=== PATIENT | female | born 1990 | race Caucasian/White ===

== ENCOUNTER 2018-01-21 04:18 | Emergency (ER) | payer OTHER ==
[~2018-01-21] VITALS: Ht 149.9 cm; Wt 72.7 kg
[~2018-01-21 04:18] MED LIST: ALBUTEROL SULF8.5 GM IH; AUGMENTIN875 MG PO; CIPRO500 MG PO; FLONASE16 G1 BOTH NARES; METHADONE HCL40 MG PO; MOTRIN600 MG PO; NOHOMEMEDS; PREDNISONE10 MG PO; PROVENTIL HFA6.7 GM IH; PROVENTIL,2.5 MG/3 M IH; TAMIFLU75 MG PO; TESSALON200 MG PO; VENTOLIN HFA18 GM IH; ZYRTEC10 M3 PO
[2018-01-21] MEDS ORDERED: BACTRIM,SEPT1 TABLET PO (05:06)
[2018-01-21 05:24] VITALS: BP 137/90
== END 2018-01-21 05:25 | disposition home or self-care (01) ==
LOC: EME 04:18
DX: L03.116 Cellulitis of left lower limb (principal); L03.114 Cellulitis of left upper limb; Z86.14 Personal history of Methicillin resistant Staphylococcus aureus infection; J45.909 Unspecified asthma, uncomplicated; F17.200 Nicotine dependence, unspecified, uncomplicated
CPT/HCPCS: 99281; 99284

== ENCOUNTER 2018-02-12 11:42 | Emergency (ER) | payer OTHER ==
[~2018-02-12] VITALS: Ht 149.9 cm; Wt 73.2 kg
[~2018-02-12 11:42] MED LIST changes: +BACTRIM,SEPT1 TABLET PO
[2018-02-12 11:49] VITALS: BP 151/101
[2018-02-12 14:15] LABS: HEMATOCRIT 42.3 % (36.0-46.0); MCH 30.1 PG (29.0-34.0); MCHC 33.1 G/DL (30.0-36.0); PLATELET COUNT 445 K/uL (156-360); RBC DIS.WIDTH-CV 14.7 % (11.8-14.6); RBC DIS.WIDTH-SD 48.6 % (39-53); RED BLOOD COUNT 4.65 M/uL (3.80-5.20); WHITE BLOOD COUNT 10.7 K/uL (4.1-10.2)
[2018-02-12 14:28] LABS: ALBUMIN 4.2 g/dL (3.2-4.8); CHLORIDE 106 mEq/L (99-109); POTASSIUM 3.6 mEq/L (3.7-5.4); SODIUM 143 mEq/L (136-147)
[2018-02-12 14:30] LABS: GLUCOSE 106 mg/dL (70-99); TOTAL PROTEIN 6.8 g/dL (6.4-8.3)
[2018-02-12 14:32] LABS: TOTAL BILIRUBIN 0.3 mg/dL (0.0-1.0)
[2018-02-12 14:34] LABS: ALKALINE PHOSPHATASE 70 IU/L (3-129); CREATININE 0.7 mg/dL (0.6-1.3); GFR ESTIMATE (CALCULATED) > 59 mL/min/
[2018-02-12 14:35] LABS: UREA NITROGEN (BUN) 9 mg/dL (9-23)
[2018-02-12 14:36] LABS: AST (GOT) 10 IU/L (2-34)
[2018-02-12 14:37] LABS: ALT (GPT) 8 IU/L (3-49)
[2018-02-12 14:44] LABS: QUANTITATIVE HCG < 4.0 MIU/ML
== END 2018-02-12 15:10 | disposition left against medical advice (07) ==
LOC: EME 11:42
PROVIDERS: Nurse Practitioner Family
DX: G43.909 Migraine, unspecified, not intractable, without status migrainosus (principal); R56.9 Unspecified convulsions; Z79.891 Long term (current) use of opiate analgesic; F17.200 Nicotine dependence, unspecified, uncomplicated; J45.909 Unspecified asthma, uncomplicated; Z87.442 Personal history of urinary calculi; Z88.8 Allergy status to other drugs, medicaments and biological substances
CPT/HCPCS: 80053; 81003; 84702; 85027; 99281; 99284; J1100; J1200; J1885; J2765; J7030